=== PATIENT | female | born 1995 | race Two or more races ===

== ENCOUNTER 2023-01-18 15:52 | Emergency (ER) | payer OTHER ==
[~2023-01-18] VITALS: Ht 165.1 cm; Wt 68.0 kg
== END 2023-01-18 18:14 | disposition home or self-care (01) ==
LOC: ER 15:52
DX: S00.81XA Abrasion of other part of head, initial encounter (principal); Y08.89XA Assault by other specified means, initial encounter; Y93.9 Activity, unspecified; Y92.89 Other specified places as the place of occurrence of the external cause; Y99.9 Unspecified external cause status; Z91.013 Allergy to seafood